=== PATIENT | male | born 1975 | race Caucasian/White ===

== ENCOUNTER 2016-05-04 22:37 | Emergency (ER) | payer MEDICAID, OTHER ==
[~2016-05-04] VITALS: Ht 182.9 cm; Wt 94.0 kg
[~2016-05-04 22:37] MED LIST: ALPR.25 PO; SERT-132 PO
[2016-05-04 22:45] VITALS: BP 172/79; PULSE 79; RESP 16; TEMP 97.8; O2SAT 98
[2016-05-04] MEDS ORDERED: ALPR.25 PO (22:58)
[2016-05-04] MEDS ORDERED: SERT25TA83 PO (22:58)
--- NOTE | 2016-05-04 23:40 | PD ---
HPI Chief Complaint: Psychiatric Symptoms Time Seen by Provider: 23:30 Travel History International Travel<30 days: No Contact w/Intl Traveler<30days: No Traveled to known affect area: No History of Present Illness HPI 40-year-old male presents under Combs act admission by the Police Department. The patient reports that today he felt increasingly depressed. He has a history of depression and he is prescribed Prozac. He has not taking his Prozac in the past 2 days. He reports that this evening after work he took a nap. He reports that he yelled at his daughter. He asked his mother if the daughter could stay with her tonight and the mother was concerned that the patient may be suicidal. His parents called the police who placed him under Combs act. The patient is to feeling depressed and admits that sometimes he wishes that he would not wake up after going to sleep. He denies any actual suicidal thoughts or plans. He denies any homicidal ideation. He denies any drug or alcohol use. He has no medical complaints at this time. [facility] Past Medical History Depression: Yes Diminished Hearing: No Past Surgical History Surgical History: No Previous Surgery Social History Alcohol Use: No Tobacco Use: No (never) Substance Use: No Allergies-Medications (Allergen,Severity, Reaction): Coded Allergies: No Known Allergies (Verified , 05/04/16) Reported Meds & Prescriptions Reported Meds & Active Scripts Active Reported Sertraline (Sertraline HCl) 25 Mg Tab 25 Mg PO DAILY Xanax (Alprazolam) 0.25 Mg Tab 0.25 Mg PO Q6H PRN Review of Systems Except as stated in HPI: all other systems reviewed are Neg Physical Exam Narrative GENERAL: Well-developed well-nourished male in no acute distress SKIN: Warm and dry. HEAD: Atraumatic. Normocephalic. EYES: Pupils equal and round. No scleral icterus. No injection or drainage. ENT: No nasal bleeding or discharge. Mucous membranes pink and moist. NECK: Trachea midline. No JVD. CARDIOVASCULAR: Regular rate and rhythm. No murmur appreciated. RESPIRATORY: No accessory muscle use. Clear to auscultation. Breath sounds equal bilaterally. MUSCULOSKELETAL: No obvious deformities. NEUROLOGICAL: Awake and alert. No obvious cranial nerve deficits. Motor grossly within normal limits. Normal speech. PSYCHIATRIC: Appropriate mood and affect; insight and judgment normal. Data Data Last Documented VS Vital Signs Date Time Temp Pulse Resp B/P Pulse Ox O2 Delivery O2 Flow Rate FiO2 05/04/16 22:45 97.8 79 16 172/79 98 Orders Complete Blood Count With Diff (05/04/16 23:05) Comprehensive Metabolic Panel (05/04/16 23:05) Drug Screen, Random Urine (05/04/16 23:05) Alcohol (Ethanol) (05/04/16 23:05) Psych Screen (05/04/16 23:05) Labs Laboratory Tests Test 05/04/16 23:00 White Blood Count 6.7 TH/MM3 Red Blood Count 4.91 MIL/MM3 Hemoglobin 14.4 GM/DL Hematocrit 41.6 % Mean Corpuscular Volume 84.7 FL Mean Corpuscular Hemoglobin 29.3 PG Mean Corpuscular Hemoglobin 34.6 % Concent Red Cell Distribution Width 12.6 % Platelet Count 241 TH/MM3 Mean Platelet Volume 7.5 FL Neutrophils (%) (Auto) 55.1 % Lymphocytes (%) (Auto) 30.2 % Monocytes (%) (Auto) 9.2 % Eosinophils (%) (Auto) 4.7 % Basophils (%) (Auto) 0.8 % Neutrophils # (Auto) 3.7 TH/MM3 Lymphocytes # (Auto) 2.0 TH/MM3 Monocytes # (Auto) 0.6 TH/MM3 Eosinophils # (Auto) 0.3 TH/MM3 Basophils # (Auto) 0.1 TH/MM3 CBC Comment DIFF FINAL Differential Comment Sodium Level 142 MEQ/L Potassium Level 3.7 MEQ/L Chloride Level 107 MEQ/L Carbon Dioxide Level 27.6 MEQ/L Anion Gap 7 MEQ/L Blood Urea Nitrogen 14 MG/DL Creatinine 1.04 MG/DL Estimat Glomerular Filtration 80 ML/MIN Rate Random Glucose 103 MG/DL Calcium Level 8.5 MG/DL Total Bilirubin 0.4 MG/DL Aspartate Amino Transf 12 U/L (AST/SGOT) Alanine Aminotransferase 29 U/L (ALT/SGPT) Alkaline Phosphatase 61 U/L Total Protein 7.2 GM/DL Albumin 3.7 GM/DL Ethyl Alcohol Level LESS THAN 3 MG/DL MDM Medical Decision Making Medical Screen Exam Complete: Yes Emergency Medical Condition: Yes Medical Record Reviewed: Yes Differential Diagnosis Major depressive disorder, medication noncompliance, acute psychosis, adjustment reaction, substance induced mood disorder Narrative Course This is a 40-year-old male who presents under Combs act for psychiatric evaluation of depression. Mental health screening discussed with the patient. Psychiatric screen ordered. The patient is medically cleared for psychiatric disposition. Diagnosis Primary Impression: Depression Qualified Code: F32.9 - Depression, unspecified depression type Earle Mukherjee May 04, 2016 23:40
[2016-05-04 23:42] LABS: AUTOMATED NEUTROPHIL # 3.7 TH/MM3 (1.8-7.7); BASOPHIL # 0.1 TH/MM3 (0-0.2); BASOPHIL % 0.8 % (0.0-2.0); EOSINOPHIL # 0.3 TH/MM3 (0-0.4); EOSINOPHIL % 4.7 % (0.0-4.0); HEMATOCRIT 41.6 % (39.0-51.0); HEMO FLAGS DIFF FINAL; LYMPH % 30.2 % (9.0-44.0); MEAN CELL VOLUME 84.7 FL (80.0-100.0); MEAN CORPUSCULAR HEMOGLOBIN 29.3 PG (27.0-34.0); MEAN CORPUSCULAR HGB CONC 34.6 % (32.0-36.0); MONO % 9.2 % (0.0-8.0); NEUT % 55.1 % (16.0-70.0); PLATELET COUNT 241 TH/MM3 (150-450); RED BLOOD COUNT 4.91 MIL/MM3 (4.50-5.90); RED CELL DISTRIBUTION WIDTH 12.6 % (11.6-17.2); WHITE BLOOD COUNT 6.7 TH/MM3 (4.0-11.0)
[2016-05-04 23:49] LABS: ANION GAP 7 MEQ/L (5-15)
[2016-05-04 23:52] LABS: ALKALINE PHOSPHATASE 61 U/L (45-117); ALT (GPT) 29 U/L (12-78); AST (GOT) 12 U/L (15-37); BICARBONATE 27.6 MEQ/L (21.0-32.0); BLOOD UREA NITROGEN 14 MG/DL (7-18); CHLORIDE 107 MEQ/L (98-107); GLOMERULAR FILTRATION RATE 80 ML/MIN (>89); POTASSIUM 3.7 MEQ/L (3.5-5.1); SODIUM (NA) 142 MEQ/L (136-145); TOTAL BILIRUBIN ADULT 0.4 MG/DL (0.2-1.0)
[2016-05-05 00:44] VITALS: BP 156/95; PULSE 88; RESP 16; TEMP 97.5; O2SAT 100
[2016-05-05 01:48] LABS: AMPHETAMINE, URINE POS (NEG); BARBITURATES, URINE NEG (NEG); COCAINE, URINE NEG (NEG)
[2016-05-05] MEDS ORDERED: PROZ20CA11 PO (03:10)
[2016-05-05 06:13] VITALS: BP 151/90; PULSE 99; RESP 18; TEMP 97.5; O2SAT 99
[2016-05-05 07:58] VITALS: BP 151/90; PULSE 99; RESP 18; O2SAT 99
--- NOTE | 2016-05-05 08:20 | PD.CONS ---
Provisional Diagnosis Admission Date 05/04/2016 [place] I. 1. Adjustment disorder, unspecified [place] II. Deferred [place] V. GAF is 60 presently History of Present Illness Service Psychiatry Consult Requested By Emergency department Reason for Consult Combs act Primary Care Physician Bud Hinson MD HPI Mr. Díaz is a 40-year-old male with a reported history of depression/anxiety managed by his primary care doctor who presents under a Combs act alleging that the patient made suicidal statements to parents. Reviewing the electronic medical record I see no prior psychiatric contact within our system. Patient seen and examined. Chart reviewed. Case discussed with nurse in the J- pod. There has been no evidence of any suicidal or homicidal behavior during observation in the J-pod. The patient is clinically sober the time of my evaluation although his urine toxicology had been positive for benzodiazepines and amphetamines. He reports of these are prescribed to him. The patient adamantly denies any suicidal ideation, intent or plan to me. He says that he wants to live for his daughter. He is future oriented. He says that he may be suicidal statements to his parents to try to elicit sympathy. He says that his parents have been helping him out financially lately. He denies any particular issues with low mood. He denies any feelings of hopelessness, worthlessness or morbid guilt. No reported sleep or appetite difficulties. He denies ever experiencing audiovisual hallucinations, and I can elicit no delusional beliefs including but not limited to paranoia, ideas of reference, thought insertion or withdrawal or grandiosity. I can elicit no hypomanic or manic symptoms. The psychiatric ROS is otherwise negative. Past psychiatric history: Patient reports that he follows with his primary care doctor and receives an SSRI as well as Xanax and a stimulant. He says that the stimulant is prescribed to counteract the effect of the Xanax. He denies any history of outpatient psychiatric treatment. He denies any history of psychiatric admissions or suicide attempts. Family history: Patient denies any family history of serious mental illness, substance use disorder or suicide. Chemical dependency history: Patient denies any history of abuse of drugs or alcohol. Social history: The patient reports that he lives with his 16-year-old daughter. He works at [employer]. He is high school educated. He denies any legal issues. He denies any access to guns or firearms. Review of Systems Other No reported headache, vision or hearing changes, chest pain, shortness of breath , bowel or bladder issues. No other physical complaints. Past Family Social History Coded Allergies: No Known Allergies (Verified , 05/04/16) Past Medical History See electronic medical record Reported Medications Fluoxetine (Prozac)20 Mg Cap20 Mg PO DAILY #30 CAP Ref 0 05/05/16 Sertraline 25 Mg Tab25 Mg PO DAILY #30 TAB Ref 0 05/04/16 Alprazolam (Xanax)0.25 Mg Tab0.25 Mg PO Q6H PRN (ANXIETY) Ref 0 05/04/16 Discontinued Scripts Sertraline 50 mg 50 Mg Tab1 Tab PO DAILY #45 TAB Ref 3 Prov:Bud Hinson MD 11/19/15 Alprazolam (Xanax 0.25 Mg)Alprazolam 0.25 mg Tab1 Tab PO Q6H PRN (feeling of panic) #30 TAB Prov:Bud Hinson MD 11/19/15 See above Patient's Strengths (min. 2) Intelligent. Verbally fluent. Physical Exam A physical examination was completed in the emergency room by the ER staff. On my examination today I find a well-nourished, well-developed male in no acute physical distress. No motoric abnormalities noted. No signs of intoxication or withdrawal noted. Labs and vital signs reviewed. Vital Signs Vital Signs Date Time Temp Pulse Resp B/P Pulse Ox O2 Delivery O2 Flow Rate FiO2 05/05/16 07:58 99 18 151/90 99 Room Air 05/05/16 06:13 97.5 Lab Results Item Value Date Time White Blood Count 6.7 TH/MM3 05/04/162299 Hemoglobin 14.4 GM/DL 05/04/162299 Platelet Count 241 TH/MM3 05/04/162299 Sodium Level 142 MEQ/L 05/04/160 Potassium Level 3.7 MEQ/L 05/04/162299 Chloride Level 107 MEQ/L 05/04/16 230 Carbon Dioxide Level 27.6 MEQ/L 05/04/16 230 Blood Urea Nitrogen 14 MG/DL 05/04/16 2300 Creatinine 1.04 MG/DL 05/04/16 2300 Aspartate Amino Transf (AST/SGOT) 12 U/L L 05/04/16 2300 Alanine Aminotransferase (ALT/SGPT) 29 U/L 05/04/16 2300 Alkaline Phosphatase 61 U/L 05/04/16 2300 Urine Amphetamines Screen POS H 05/05/16 0045 Urine Benzodiazepines Screen POS H 05/05/16 0045 Ethyl Alcohol Level LESS THAN 3 MG/DL 05/04/16 2300 Mental Status Examination Patient is in hospital [facility]. He is well groomed. He is awake and alert and oriented 3. No abnormal motor movements noted. Speech is within normal limits for rate, tone and volume. Language and fund of knowledge seem average for age. Mood is stable and fair and affect is full and reactive. Thought process linear. No loosening of associations. No evident delusions. Denies audiovisual hallucinations. Denies suicidal or homicidal ideation. Insight and judgment are fair. Assessment & Plan Problem List: (1) Adjustment disorder, unspecified ICD Code: F43.20 Assessment & Plan This is a 40-year-old male with psychiatric history as detailed above who presents on a Combs act alleging suicidal threats. Patient admits to making these threats but says that they were manipulative for the reasons noted above. He denies any suicidal or homicidal ideation on direct questioning. He is future oriented and wants to live for his daughter. I can detect no unstable mood, anxiety or psychotic disorder in this patient at this time. Weighing the acute, chronic, and protective factors and based on the available evidence, I psychiatry physician to a reasonable degree of medical certainty that the patient is at low imminent risk of harm to self or others from a mental illness as defined under the Combs act and his level of function is adequate for outpatient care. The patient does not meet Combs act criteria at this time, and I have lifted the Combs act. Patient does not require inpatient psychiatric services at this time. I have offered the patient a referral for psychiatric services in the community, or he may continue with his primary care doctor as he has been. I have counseled the patient regarding warning signs for need to return to the psychiatric emergency room as part of a general safety plan. The patient is psychiatrically clear for discharge from the ED. Raffi Hernandez MD May 05, 2016 08:20
[2016-06-06] MEDS ORDERED: SERO50TA PO (11:38)
== END 2016-05-05 10:25 | disposition home or self-care (01) ==
LOC: NEPA 22:37 → NEPJ 05-05 10:25
DX: F32.9 Major depressive disorder, single episode, unspecified (principal); F43.20 Adjustment disorder, unspecified
CPT/HCPCS: 80053; 80307; 80320; 85025; 99283

== ENCOUNTER 2017-04-14 07:57 | Emergency (ER) | payer MEDICAID, OTHER ==
[~2017-04-14] VITALS: Ht 182.9 cm; Wt 97.5 kg
[2017-04-14 07:59] VITALS: BP 170/106; PULSE 100; RESP 15; TEMP 97.6; O2SAT 98
--- NOTE | 2017-04-14 08:08 | PD ---
HPI Chief Complaint: Cold / Flu Symptoms Time Seen by Provider: 08:07 Travel History International Travel<30 days: No Contact w/Intl Traveler<30days: No Traveled to known affect area: No History of Present Illness HPI 41-year-old male presents to emergency with 2 day history of upper respiratory infection symptoms including congestion, sinus headache, sore throat , and cough. Cough is currently keeping up at night. Patient has tried everything [id number] without improvement. He has had some nausea but no vomiting. No diarrhea. He denies significant wheezing or shortness of breath. Cough is nonproductive. He denies specific fever. He has no known drug allergies. PFSH Past Medical History Depression: Yes Diminished Hearing: No Social History Alcohol Use: No Tobacco Use: No (never) Substance Use: No (DENIES) Allergies-Medications (Allergen,Severity, Reaction): Coded Allergies: No Known Allergies (Verified Adverse Reaction, Unknown, 04/14/17) Reported Meds & Prescriptions Reported Meds & Active Scripts Active Tussionex Pennkinetic Ext 12 HR Liq (Hydrocodone-Chlorpheniramine 12 HR Liq) 10- 8 Mg/5 Ml Susp 5 Ml PO Q12H PRN Review of Systems Except as stated in HPI: all other systems reviewed are Neg General / Constitutional: Positive: Chills, No: Fever Eyes: No: Visual changes HENT: Positive: Headaches, Sore Throat, Rhinitis, Rhinorrhea, Congestion, No: Nosebleed, Neck Stiffness, Neck Pain, Dental Difficulties, Earache Cardiovascular: No: Chest Pain or Discomfort Respiratory: Positive: Cough, No: Shortness of Breath, Wheezing, Sneezing Gastrointestinal: Positive: Nausea, No: Vomiting, Diarrhea, Abdominal Pain Genitourinary: No: Dysuria Musculoskeletal: No: Pain Skin: No Rash Neurologic: No: Weakness Psychiatric: No: Depression Endocrine: No: Polydipsia Hematologic/Lymphatic: No: Easy Bruising Physical Exam Narrative GENERAL: Patient appears ill but not septic. SKIN: Warm and dry. Normal Color. Normal turgor. HEAD: Atraumatic. Normocephalic. EYES: Pupils equal and round. No scleral icterus. No injection or drainage. ENT: No nasal bleeding or discharge. Mucous membranes pink and moist. TMs are unremarkable bilaterally. Patient has no sinus tenderness to palpation. Patient is clear rhinitis. Posterior pharynx appears somewhat irritated but not significantly erythematous or swollen. Uvula is midline. NECK: Trachea midline. Supple and nontender. CARDIOVASCULAR: Regular rate and rhythm. RESPIRATORY: No accessory muscle use. Clear to auscultation. Breath sounds equal bilaterally. GASTROINTESTINAL: Abdomen soft, non-tender, nondistended. Hepatic and splenic margins not palpable. MUSCULOSKELETAL: Extremities without clubbing, cyanosis, or edema. No obvious deformities. NEUROLOGICAL: Awake and alert. No obvious cranial nerve deficits. Motor grossly within normal limits. Five out of 5 muscle strength in the arms and legs. Normal speech. PSYCHIATRIC: Appropriate mood and affect; insight and judgment normal. Data Data Last Documented VS Vital Signs Date Time Temp Pulse Resp B/P (MAP) Pulse Ox O2 Delivery O2 Flow Rate FiO2 04/14/17 08:09 18 04/14/17 07:59 97.6 100 170/106 (127) 98 Orders Orders Influenzae A/B Antigen (04/14/17 08:08) Group A Rapid Strep Screen (04/14/17 08:08) Strep Culture (Group A) (04/14/17 08:17) MDM Medical Decision Making Medical Screen Exam Complete: Yes Emergency Medical Condition: Yes Differential Diagnosis Upper respiratory infection. Influenza. Strep throat. Cough. Narrative Course Patient is medically stable at time of exam. Rapid influenza and rapid strep is taken. Further labs or radiographic imaging is not felt warranted based on the patient' s current exam. Both rapid influenza and rapid strep is negative. Patient is given Tussionex for cough as needed. [address] Patient is a [id number] ibuprofen and Tylenol as needed. Patient is to rest push fluids and work note is given. Recommend close follow-up if symptoms persist. Patient return if symptoms worsen as needed. Diagnosis Primary Impression: Upper respiratory infection, viral Referrals: Primary Care Physician Departure Forms: Work Release Enter return to work date: Apr 16, 2017 Additional Instructions: Both rapid influenza and rapid strep is negative. Patient is given Tussionex for cough as needed. [address] Patient is a [id number] ibuprofen and Tylenol as needed. Patient is to rest push fluids and work note is given. Recommend close follow-up if symptoms persist. Patient return if symptoms worsen as needed. Med/Other Pt SpecificInfo: Prescription(s) given Scripts Hydrocodone-Chlorpheniramine 12 HR Liq (Tussionex Pennkinetic Ext 12 HR Liq) 10- 8 Mg/5 Ml Susp 5 ML PO Q12H Y for COUGH AND/OR COLD SYMPTOMS, #60 ML 0 Refills Prov: Kaveh Belcher MD 04/14/17 Disposition: 01 DISCHARGE HOME Condition: Stable Ethan Ta Apr 14, 2017 08:08
[2017-04-14] MEDS ORDERED: TUSSSUS2 PO (08:15)
== END 2017-04-14 09:46 | disposition home or self-care (01) ==
LOC: NEPD 07:57
DX: J06.9 Acute upper respiratory infection, unspecified (principal)
CPT/HCPCS: 87081; 87804; 87880; 99283